=== PATIENT | male | born 1955 | race Caucasian/White ===

== ENCOUNTER → 2022-01-24 10:49 | Day surgery (SDC) | payer MEDICARE, SELFPAY ==
[2022-01-24 11:06] VITALS: BP 138/56; PULSE 76; RESP 18; TEMP 36.9; O2SAT 98
[2022-01-24] MEDS: vedolizumab 300 MG in sodium chloride 0.9% 250 ML 500 MG IV (11:21)
== END ==
PROVIDERS: PCP Internal Medicine; Visit Provider Internal Medicine
DX: K51.90 Ulcerative colitis, unspecified, without complications (principal)
CPT/HCPCS: 96365; J3380; J7050

== ENCOUNTER → 2022-03-21 10:52 | Day surgery (SDC) | payer MEDICARE, SELFPAY ==
[2022-03-21 10:53] VITALS: BP 161/69; PULSE 61; RESP 18; TEMP 36.7; O2SAT 97
[2022-03-21] MEDS: vedolizumab 300 MG in sodium chloride 0.9% 250 ML 500 MG IV (11:10)
== END ==
PROVIDERS: PCP Internal Medicine; Visit Provider Internal Medicine
DX: K51.90 Ulcerative colitis, unspecified, without complications (principal)
CPT/HCPCS: 96365; J3380; J7050

== ENCOUNTER → 2022-05-16 08:35 | Day surgery (SDC) | payer MEDICARE, SELFPAY ==
[2022-05-16 08:30] VITALS: BP 155/77; PULSE 51; RESP 18; TEMP 36.6; O2SAT 98
[2022-05-16] MEDS: vedolizumab 300 MG in sodium chloride 0.9% 250 ML 500 MG IV (08:37)
== END ==
PROVIDERS: PCP Internal Medicine; Visit Provider Internal Medicine
DX: K51.90 Ulcerative colitis, unspecified, without complications (principal)
CPT/HCPCS: 96365; J3380; J7050

== ENCOUNTER → 2022-07-11 08:04 | Day surgery (SDC) | payer MEDICARE, SELFPAY ==
[2022-07-11] MEDS: vedolizumab 300 MG in sodium chloride 0.9% 250 ML 500 MG IV (08:53)
[2022-07-11 09:11] VITALS: BP 170/78; PULSE 61; RESP 18; TEMP 37; O2SAT 96
== END ==
PROVIDERS: PCP Internal Medicine; Visit Provider Internal Medicine
DX: K51.90 Ulcerative colitis, unspecified, without complications (principal)
CPT/HCPCS: 96365; J3380; J7050

== ENCOUNTER → 2022-09-08 12:52 | Day surgery (SDC) | payer MEDICARE, SELFPAY ==
[2022-09-08] MEDS: vedolizumab 300 MG in sodium chloride 0.9% 250 ML 500 MG IV (13:16)
[2022-09-08 13:21] VITALS: BP 152/69; PULSE 64; RESP 18; TEMP 36.6; O2SAT 97
== END ==
PROVIDERS: PCP Internal Medicine; Visit Provider Internal Medicine
DX: K51.90 Ulcerative colitis, unspecified, without complications (principal)
CPT/HCPCS: 96365; J3380; J7050

== ENCOUNTER → 2022-11-07 11:32 | Day surgery (SDC) | payer MEDICARE, SELFPAY ==
[2022-11-07] MEDS: vedolizumab 300 MG in sodium chloride 0.9% 250 ML 500 MG IV (11:43)
[2022-11-07 11:49] VITALS: BP 149/66; PULSE 64; RESP 18; TEMP 36.9; O2SAT 96
== END ==
PROVIDERS: PCP Internal Medicine; Visit Provider Internal Medicine
DX: K51.90 Ulcerative colitis, unspecified, without complications (principal)
CPT/HCPCS: 96365; J3380; J7050

== ENCOUNTER → 2023-01-02 10:13 | Day surgery (SDC) | payer OTHER, SELFPAY ==
[2023-01-02 10:23] VITALS: BP 173/77; PULSE 60; RESP 18; TEMP 36.9; O2SAT 96
[2023-01-02] MEDS: vedolizumab 300 MG in sodium chloride 0.9% 250 ML 500 MG IV (10:29)
== END ==
PROVIDERS: PCP Internal Medicine; Visit Provider Internal Medicine
DX: K51.90 Ulcerative colitis, unspecified, without complications (principal); Z79.899 Other long term (current) drug therapy
CPT/HCPCS: 96365; J3380; J7050

== ENCOUNTER 2023-01-06 10:28 | Outpatient (CLI) | payer OTHER, SELFPAY ==
--- NOTE | 2023-01-06 10:42 | USCV_ITS ---
Frank Jhony Age: 67 Gender: M : 1955 Exam Date: 01/06/2023 11:15 Ordering Phys: Ankur Andrea DO Technologist: PIETER Exam Location: [facility] [place] Indication: LEFT BRUIT Risk Factors: Previous Vascular Surgery: Right Brachial BP: / Left Brachial BP: / Right Left Velocity (cm/s) Spectral Plaque Velocity (cm/s) Spectral Plaque Syst/Diast Broadening Syst/Diast Broadening 87.10/ 17.60 Prox CCA 124.30/ 19.30 105.80/18.70 Mid CCA 100.30/ 17.60 102.50/24.30 Distal CCA 99.20 / 24.30 91.10/ 16.20 Prox ICA 72.20 / 14.90 76.90/ 22.30 Mid ICA 93.10 / 25.60 63.70/ 14.00 Distal ICA 78.60 / 18.80 126.80 ECA 102.20 0.86 ICA/CCA 0.75 Antegrade Vertebral Antegrade 54.20/ 10.00 cm/s 77.80/ 12.80 cm/s Tri Subclavian Tri 134.0 169.9 0 0 FINDINGS Comparison: none available. Minimal bilateral, intimal thickening with no elevation of velocity. No significant elevation of systolic or diastolic velocities. Waveforms are normal. Antegrade vertebral arteries. CONCLUSIONS Bilateral ICA stenosis less than 50%. Minimal carotid atherosclerotic plaque. Dr. Janette Higginbotham DO (Electronically Signed) Final Date: 06 Jan 2023 11:51 S
== END 2023-01-06 10:29 | disposition home or self-care (01) ==
LOC: RAD 10:34
PROVIDERS: PCP Internal Medicine; Visit Provider Emergency Medicine Emergency Medical Services
DX: I65.23 Occlusion and stenosis of bilateral carotid arteries (principal); R09.89 Other specified symptoms and signs involving the circulatory and respiratory systems
CPT/HCPCS: 93880

== ENCOUNTER → 2023-03-02 09:41 | Day surgery (SDC) | payer OTHER, SELFPAY ==
[2023-03-02 09:50] VITALS: BP 170/69; PULSE 61; RESP 18; TEMP 36.8; O2SAT 97
[2023-03-02] MEDS: vedolizumab 300 MG in sodium chloride 0.9% 250 ML 500 MG IV (10:08)
== END ==
PROVIDERS: PCP Internal Medicine; Visit Provider Internal Medicine
DX: K51.90 Ulcerative colitis, unspecified, without complications (principal); Z79.899 Other long term (current) drug therapy
CPT/HCPCS: 96365; J3380; J7050

== ENCOUNTER → 2023-04-24 09:21 | Day surgery (SDC) | payer OTHER, SELFPAY ==
[2023-04-24 10:15] VITALS: BP 150/63; PULSE 48; RESP 18; TEMP 36.3; O2SAT 96
[2023-04-24] MEDS: vedolizumab 300 MG in sodium chloride 0.9% 250 ML 500 MG IV (10:24)
== END ==
PROVIDERS: PCP Internal Medicine; Visit Provider Internal Medicine
DX: K51.90 Ulcerative colitis, unspecified, without complications (principal)
CPT/HCPCS: 96360; J3380; J7050

== ENCOUNTER → 2023-06-19 07:46 | Day surgery (SDC) | payer OTHER, SELFPAY ==
[2023-06-19 08:18] VITALS: BP 177/81; PULSE 58; RESP 18; TEMP 36.7; O2SAT 97
[2023-06-19] MEDS: vedolizumab 300 MG in sodium chloride 0.9% 250 ML 500 MG IV (08:24)
== END ==
PROVIDERS: PCP Internal Medicine; Visit Provider Internal Medicine
DX: K51.90 Ulcerative colitis, unspecified, without complications (principal)
CPT/HCPCS: 96365; J3380; J7050

== ENCOUNTER 2023-11-09 07:12 | Oncology outpatient (recurring) (ONCR) | payer OTHER, SELFPAY ==
[2023-11-09 08:01] VITALS: BP 144/62; PULSE 60; RESP 16; TEMP 36.4; O2SAT 96
[2023-11-09] MEDS: sodium chloride 0.9% 250 ML 75 ML IV (08:46)
[2023-11-09] MEDS: vedolizumab 300 MG in sodium chloride 0.9% 250 ML 500 MG IV (09:42)
[2023-11-09 10:14] VITALS: BP 163/76; PULSE 77; O2SAT 96
== END 2023-12-08 23:59 | disposition home or self-care (01) ==
PROVIDERS: PCP Internal Medicine; Visit Provider Emergency Medicine Emergency Medical Services
DX: K51.90 Ulcerative colitis, unspecified, without complications (principal)
CPT/HCPCS: 96413; J3380; J7050

== ENCOUNTER → 2023-11-26 13:32 | Outpatient (BNVA) | payer OTHER, SELFPAY | PROVIDERS: PCP Internal Medicine; Visit Provider Nurse Practitioner Family | DX: L57.0 Actinic keratosis (principal); L56.8 Other specified acute skin changes due to ultraviolet radiation; L21.8 Other seborrheic dermatitis; S30.860A Insect bite (nonvenomous) of lower back and pelvis, initial encounter; X58.XXXA Exposure to other specified factors, initial encounter; L85.3 Xerosis cutis; D22.5 Melanocytic nevi of trunk; L57.8 Other skin changes due to chronic exposure to nonionizing radiation; L81.4 Other melanin hyperpigmentation | CPT/HCPCS: 17000; 99204 ==

== ENCOUNTER 2024-01-05 07:23 | Oncology outpatient (recurring) (ONCR) | payer OTHER, SELFPAY ==
[2024-01-05 08:12] VITALS: BP 165/61; PULSE 56; RESP 16; TEMP 36.3; O2SAT 96
[2024-01-05] MEDS: sodium chloride 0.9% 250 ML 75 ML IV (09:17)
[2024-01-05] MEDS: vedolizumab 300 MG in sodium chloride 0.9% 250 ML 500 MG IV (09:25)
[2024-01-05 10:18] VITALS: BP 169/61; PULSE 54; RESP 16; TEMP 36.6; O2SAT 99
== END 2024-01-08 23:59 | disposition home or self-care (01) ==
PROVIDERS: PCP Internal Medicine; Visit Provider Emergency Medicine Emergency Medical Services
DX: K51.90 Ulcerative colitis, unspecified, without complications (principal); Z79.620 Long term (current) use of immunosuppressive biologic; Z79.899 Other long term (current) drug therapy
CPT/HCPCS: 96365; J3380; J7050

== ENCOUNTER 2024-02-04 20:27 | Emergency (ER) | payer OTHER, MEDICARE, SELFPAY ==
[2024-02-04 20:29] VITALS: BP 170/55; PULSE 59; RESP 16; TEMP 36.5; O2SAT 97; BMI 25.0
--- NOTE | 2024-02-04 20:48 | XRR_ITS ---
PROCEDURE INFORMATION: Exam: XR Left Hand Exam date and time: 02/04/2024 8:54 PM Age: 68 years old Clinical indication: Injury or trauma; Fall; Laceration; Left; Ring finger; Injury details: PT fell and cut finger on a plastic chair. ; Additional info: Finger mangled TECHNIQUE: Imaging protocol: Radiologic exam of the left hand. Views: 3 or more views. COMPARISON: No relevant prior studies available. FINDINGS: Bones/joints: Bones are demineralized. Alignment is intact. Traumatic amputation of the distal tuft of the 4th distal phalanx. No other evidence of acute fracture. [id number] degenerative changes of the left hand in distribution most consistent with osteoarthritis. Soft tissues: Normal. Other findings: Skin defect overlying the 4th distal finger. XR/XR hand LT min 3V* [id number] IMPRESSION: Traumatic amputation of the distal tuft of the 4th distal phalanx.
[2024-02-04] MEDS: sulfamethoxazole-trimeth DS 160-800 mg Tablet 1 TAB PO (20:53)
[2024-02-04 20:54] VITALS: RESP 16; O2SAT 96
[2024-02-04] MEDS: morphine 4 mg/mL SDV 1 mL IM (20:54)
--- NOTE | 2024-02-04 20:58 | ED_ITS ---
HPI - Wound/Laceration General: Chief Complaint: Wound/Laceration Stated Complaint: laceration left hand Time Seen by Provider: 02/04/24 20:40 Source: patient Mode of arrival: ambulatory Limitations: no limitations History of Present Illness: Patient is a 68-year-old male presenting to the emergency department due to laceration to left ring finger prior to arrival. Patient states he was leaning back in his lawn chair when it broke and he caught his finger up and the armrest. He arrives with a mangled distal left ring finger that is bleeding at this time. Did arrive with direct pressure. States he did receive a tetanus shot 1 month ago. There is nailbed involvement. No obvious contamination at this time. He is noting severe pain but can still move his finger. No other symptoms reported. Not on any blood thinners. Onset (ago): minute(s) Extremity Location: Left: hand Place: outdoors Patient tetanus UTD: Yes Context: accidental Associated symptoms: Reports no associated symptoms; Denies chills, fever(s), nausea or vomiting Treatments prior to arrival: bandage Review of Systems General: Reports: 10 or more systems reviewed and unremarkable except in HPI and below Const: Denies: fever(s), chills or fatigue Eyes: Denies: change in vision ENMT: Denies: throat pain, ear or mastoid pain or nasal discharge Card: Denies: chest pain, palpitations, swelling of feet/ankles or lightheadedness Resp: Denies: dyspnea, productive cough or wheezing GI: Denies: abdominal pain, nausea, vomiting, diarrhea or constipation : Denies: flank pain, difficulty urinating, dysuria or urinary frequency Musc: Denies: neck pain, back pain or joint pain Skin/Breast: Reports: new lesions (Left ring finger laceration); Denies: rash Neuro: Denies: headache(s), numbness in extremities or weakness in extremities PFSH ED PFSH: Medical History Ulcerative colitis Social History Smoking and tobacco/nicotine status: never used tobacco/nicotine Alcohol intake: never Physical Exam Const: COMMON NORMALS: no acute distress, patient oriented x3 and no limitations GENERAL APPEARANCE: cooperative, comfortable and well developed ORIENTATION/CONSCIOUSNESS: Yes awake, Yes oriented to person, Yes oriented to place and Yes oriented to time HENMT: COMMON NORMALS: normocephalic, atraumatic and hearing grossly normal bilaterally HEAD & SCALP: normocephalic and atraumatic Eye: COMMON NORMALS: Equal, round and reactive pupils present, EOMs intact bilaterally and conjunctivae normal CONJUNCTIVA: Yes conjunctivae normal PUPIL: Yes Equal, round and reactive pupils present Neck/C-Spine: COMMON NORMALS: full ROM, supple and no JVD Resp: COMMON NORMALS: normal respiratory effort, No retractions, No use of accessory muscles and clear to auscultation bilaterally AUSCULTATION: clear to auscultation bilaterally Cardio: COMMON NORMALS: no JVD, regular rate, regular rhythm, No clicks present (Cardio), No murmurs present (Cardio) and No rub (Cardio) RATE: regular rate RHYTHM: regular rhythm Neuro: COMMON NORMALS: patient oriented x3, moves all extremities, no focal motor deficits and no sensory deficits noted SENSORIUM/ORIENTATION: Yes oriented to person, Yes oriented to place and Yes oriented to time Psych: COMMON NORMALS: mental status grossly normal and Normal thought process present THOUGHT PROCESS: Normal thought process present Skin: NARRATIVE SKIN EXAM: The tip of patient's left ring finger appears mangled, possibly a circumferential laceration involving the nailbed. There is active bleeding at this time. He can still move the finger, though with pain. No other injuries noted. Procedures Laceration Laceration 1: Site: hand Side (If applicable): left Size (cm): 5 Description: flap and irregular Depth: involves muscle layer Pre-repair: wound explored, irrigated extensively and wound margins revised Skin layer closed with: other (Prolene) Size (cm): 5-0 Number of sutures: 5 Technique: simple, interrupted Nerve Block Nerve Block 1: Local Anesthetic: lidocaine 2% Amount of anesthesia used (mL): 10 Nerve Blocks: digital Procedure Successful: Yes Patient Tolerated Procedure: well Complications: none Course Vital Signs: Vital signs: Vital Signs Temperature 97.7 F 02/04/24 20:29 Pulse Rate 60 02/04/24 22:46 Respiratory Rate 18 02/04/24 22:46 Blood Pressure 170/55 02/04/24 20:29 Pulse Oximetry 96 02/04/24 22:46 Oxygen Delivery Me thod Room Air 06/27/24 20:29 MDM - Wound/Laceration Medical Decision Making Patient presents with traumatic wound/laceration to his left ring finger. Vitals normal. His finger did appear mangled and difficult to initially evaluate the injury. X-ray of that finger revealed a traumatic amputation of the distal tuft. He is referred to orthopedics at this time. Digital block is performed successfully, in which his fingernail is successfully removed and finger is repaired. See procedure note. This procedure was tolerated well and he is dressed appropriately prior to discharge. He is given dose of antibiotics here and will take Bactrim twice daily here on out. He is also given pain medications here and will be sent prescription to his pharmacy. Reasons to return discussed including any signs of infection. Other strict return precautions given and he will follow-up as needed. Lab Data Radiology Impressions Hand X-Ray 02/04/24 20:48 IMPRESSION: Traumatic amputation of the distal tuft of the 4th distal phalanx. All radiology interpretation(s) finalized by discharge Discharge Plan Discharge Patient Disposition: Home Clinical Impression: Finger laceration Condition: Stable Prescriptions: New Bactrim 400-80 mg tablet 1 tab PO BID 10 Days Qty: 20 0RF hydrocodone-acetaminophen 7.5-325 mg tablet 1 tab PO Q8H PRN (Reason: pain) Qty: 20 0RF No Action metformin 500 mg tablet 500 mg PO DAILY pravastatin 40 mg tablet 40 mg PO DAILY mesalamine [Lialda] 1.2 gram tablet,delayed release (DR/EC) 2.4 g PO DAILY Entyvio 300 mg recon soln 300 mg IV .[id number] insulin aspart U-100 [Novolog FlexPen U-100 Insulin] 100 unit/mL (3 mL) Insulin Pen 12 unit SUBCUT TID Lantus U-100 Insulin 100 unit/mL Cartridge 40 unit SUBCUT QPM Discharge Orders: Discharge ED (Routine); Ordered 02/04/24 Ordered By: Alex Ceja Referrals: Bear Wu MD [Primary Care Provider] - Discharge Diet: Usual diet Discharge Activity: Limit activity as instructed Patient Instructions: Finger Laceration (ED) Activity Restrictions/Additional Instructions: Do not soak wound. Keep wound dry for the next 24-48 hours, afterwards you may dab clean with soap and water and then dab dry. Take antibiotics as prescribed. Pain medications as prescribed. Ice for any swelling. Follow-up with orthopedics as needed. Sutures out in 7-10 days. If you have any new or concerning signs or symptoms of infection, please return to the emergency department. Coding Level of Care Code ED Shower Screen Installer for Jennifer Vila
[2024-02-04] MEDS: lidocaine 2% INJ 20 mL INJECTION (22:00)
[2024-02-04 22:46] VITALS: PULSE 60; RESP 18; O2SAT 96
--- NOTE | 2024-02-04 22:49 | PC.NURSE ---
Pt sent home with Magnolia 7.5/325 per YOLI Ceja's orders.
== END 2024-02-04 22:45 | disposition home or self-care (01) ==
PROVIDERS: Emergency Provider Physician Assistant; PCP Internal Medicine
DX: S68.125A Partial traumatic metacarpophalangeal amputation of left ring finger, initial encounter (principal); Z79.4 Long term (current) use of insulin; W23.0XXA Caught, crushed, jammed, or pinched between moving objects, initial encounter
CPT/HCPCS: 12002; 64400; 73130; 96372; 99284; J2270

== ENCOUNTER → 2024-02-15 13:44 | Outpatient (BNVA) | payer OTHER, MEDICARE, SELFPAY | PROVIDERS: PCP Internal Medicine; Visit Provider Physician Assistant | DX: S62.635B Displaced fracture of distal phalanx of left ring finger, initial encounter for open fracture; W23.0XXA Caught, crushed, jammed, or pinched between moving objects, initial encounter | CPT/HCPCS: 73130; 99204 ==

== ENCOUNTER 2024-02-17 11:20 | Day surgery (SDC) | payer OTHER, SELFPAY ==
[2024-02-17 11:41] VITALS: BMI 25.0
[2024-02-17 11:45] LABS: Glucose Point of Care 118 mg/dL (70-110)
[2024-02-17] MEDS: ketorolac 30 mg/mL INJ IVP (11:45)
[2024-02-17] MEDS: acetaminophen 1,000 MG/100 ML PIGGYBACK 400 MG IV (11:47)
[2024-02-17] MEDS: scopolamine 1.5 Patch 1 PATCH TRANSDERMA (11:48)
[2024-02-17] MEDS: sodium chloride 0.9% 1,000 ML 30 ML IV (12:06)
--- NOTE | 2024-02-17 12:54 | W.PM.OPSUD ---
Surgery/Procedure H&P Update DATE OF PROCEDURE: February 17, 2024 DATE H&P PERFORMED: 02/15/24 H&P UPDATE INFORMATION: I have reviewed H&P completed within last 30 days, I have examined patient prior to procedure and No changes to prior documentation PREOP DIAGNOSIS: Left ring finger traumatic crush injury with nailbed injury and open distal PRIMARY INDICATION FOR PROCEDURE: Left ring finger traumatic crush injury with nailbed injury and open distal fracture PLANNED PROCEDURE: Operation Date: 02/17/24 13:20 Proposed Procedures p Debridement Upper Extremity And Irrigation - LEFT RING FINGER(Left) - DO tracie Mcdaniel Nail Bed Repair(Left) - DO tracie Mcdaniel REVISION Amputation Finger - POSSIBLE(Left) - Alok Mathias DO
--- NOTE | 2024-02-17 13:01 | ANES.PREANE2 ---
Pre-Anesthetic Assessment Height/Weight: Height 1.73 m Weight 74.843 kg O2 Del Method Room Air 02/17/24 11:35 Preop Diagnosis: Left ring finger traumatic crush injury with nailbed injury and open distal Operation Date: 02/17/24 13:20 Proposed Procedures p Debridement Upper Extremity And Irrigation - LEFT RING FINGER(Left) - Alok Mathias DO s Nail Bed Repair(Left) - Alok Mathias DO s REVISION Amputation Finger - POSSIBLE(Left) - Alok Mathias DO Familial anesthetic complications: None Was Beta Rafael taken within 24 hours: N/A Was Clonidine taken within 24 hours: N/A Last intake: Intake Last Liquid Date 02/17/24 Last Liquid Time 09:00 Last Solid Date 02/16/24 Last Solid Time 17:00 Social No alcohol and No tobacco Exam alert, oriented x 3, clear to auscultation bilaterally and regular rate & rhythm Airway Mallampati: Class I Dentition: full GI ulcerative colitis Metabolic Diabetes Mellitus Anesthetic Plan ASA status: 3 Anesthesia: MAC Risk of > 500 ml blood loss (7ml/kg in children): No Medications/Allergies Home Medications Medication Instructions Recorded Confirmed Last Taken Type mesalamine 1.2 gram tablet,delayed 2.4 g PO DAILY 01/09/22 02/16/24 02/16/24 History release (Lialda) vedolizumab 300 mg intravenous 300 mg IV .[id number] 01/09/22 02/16/24 01/05/24 History solution (Entyvio) metformin 500 mg tablet 500 mg PO DAILY 01/20/22 02/16/24 06/19/23 History pravastatin 40 mg tablet 40 mg PO DAILY 01/20/22 02/16/24 02/16/24 History insulin aspart U-100 100 unit/mL 12 unit SUBCUT TID 11/07/22 02/16/24 02/16/24 13:30 History (3 mL) subcutaneous pen (Novolog FlexPen U-100 Insulin aspart) insulin glargine 100 unit/mL 30 unit SUBCUT QPM 11/07/22 02/16/24 02/15/24 History subcutaneous cartridge hydrocodone 7.5 mg-acetaminophen 1 tab PO Q6H PRN pain 5 days #20 02/15/24 02/16/24 02/16/24 Rx 325 mg tablet tabs empagliflozin 25 mg tablet 25 mg PO DAILY 02/16/24 02/16/24 02/16/24 History Allergies Allergy/AdvReac Type Severity Reaction Status Date / Time No Known Allergies Allergy Verified 02/17/24 11:33 Current Medications Generic Name Dose Route Start Last Admin Trade Name Freq PRN Reason Stop Dose Admin Sodium Chloride 1,000 mls @ 30 mls/hr 02/17/24 12:15 02/17/24 12:06 Sodium Chloride 0.9% IV 02/18/24 12:14 30 mls/hr .Q24H FEDERICO Administration PFSH Anesthesia Medical History Ulcerative colitis Social History Smoking and tobacco/nicotine status: never used tobacco/nicotine Alcohol intake: never Data Anesthesia Cardiac Studies: No Data to Display
[2024-02-17] MEDS: ceFAZolin 2,000 MG in sodium chloride 0.9% (plus) 50 ML 100 MG IV (13:15)
[2024-02-17] MEDS: ROPivacaine 0.5% SDV 30 mL 25 MG INJECTION (14:03)
[2024-02-17] MEDS: BUPivacaine 0.5% INJ 10 mL 5 ML INJECTION (14:03)
[2024-02-17 14:06] VITALS: BP 125/60; PULSE 50; RESP 14; TEMP 36.2; O2SAT 96
[2024-02-17 14:11] VITALS: BP 111/60; PULSE 49; RESP 16; O2SAT 97
[2024-02-17 14:16] VITALS: BP 113/68; PULSE 49; RESP 16; O2SAT 96
--- NOTE | 2024-02-17 14:20 | P.BOP_ITS ---
Date of Procedure: [02/17/2024] Surgeon: Alok Mathias DO Mortgage Protection Sales(s): None Procedure(s) performed: Left ring finger irrigation and debridement (1.5 cm x 1 cm x 0.5 cm) Left ring finger nailbed repair Left ring finger revision amputation Findings of the procedure(s): [Patient found to have a traumatic open fracture distal phalanx with nailbed injury underwent revision amputation with removal of the distal tip of the phalanx fragment bone and the pulp was then reattached as well as nailbed repair performed. Underwent procedure as planned without issues or complications] Estimated blood loss: 1 mL Specimen(s) removed: None Post-operative diagnosis: Left ring finger traumatic fingertip injury with open distal phalanx fracture and nailbed injury
[2024-02-17 14:21] VITALS: BP 126/65; PULSE 48; RESP 16; TEMP 36.3; O2SAT 96
--- NOTE | 2024-02-17 14:22 | PM.OP ---
Operative Report Date of procedure: February 17, 2024 Pre-op diagnosis: Left ring finger traumatic fingertip injury with open distal phalanx fracture and nailbed injury Post-op diagnosis: Same Procedure done: Left ring finger irrigation and debridement (1.5 cm x 1 cm x 0.5 cm) Left ring finger nailbed repair Left ring finger revision amputation Specimens removed/disposition: Distal tip of distal phalanx of the left ring finger was excised for revision amputation, not sent for specimen Surgeon: Alok Mathias DO Anesthesia: MAC and Local Estimated blood loss: 1mL 25mins IV fluids: 800mL Complications: None Findings: See operative report narrative Condition: stable Disposition: same day Brief History: Patient is a pleasant 68-year-old gentleman who sustained a left ring finger crush injury to the fingertip with nailbed injury and open fracture distal phalanx. Patient originally seen evaluate in the emergency department underwent bedside irrigation debridement on antibiotics, tetanus up-to-date. Patient was then sent evaluated in the office and was seen evaluate by my PA. Found to have crush injury with nailbed injury as well as open distal phalanx fracture. At this point in time we talked about treatment options far as nonoperative and operative invention and through shared decision making patient like to proceed with surgical intervention of left ring finger irrigation and debridement and nailbed repair with possible revision amputation. Patient understands the ins and outs procedure risk benefits complication alternatives of surgery and through shared decision make elects proceed with surgical invention all questions answered at this time . Procedure: Patient was seen evaluate in the preoperative holding area. Consent was reviewed and signed with patient. Correct digit/extremity was then subsequently marked. Patient was then seen evaluated by anesthesia once cleared for surgery patient was taken back to the operative suite. Patient was kept on [facility] and armboard was applied to left upper extremity. Patient underwent anesthesia per the anesthesia apartment once appropriate anesthetized the left upper extremity was then prepped and draped in standard orthopedic fashion. Final timeout performed. Patient received appropriate preoperative antibiotics. Finger turnicot was placed over the left ring finger and started the insufflation of finger turnicot. This point in time I then subsequently evaluated left ring finger patient's crush injury and open laceration around the finger pulp as well as then had to make small incisions over the eponychial folds and remove the nail plate. This was removed atraumatically with a [place] underneath the nail. Nail was subsequently removed and had visualization with patient's distal fingertip was found to have open communication directly through the sterile matrix down to bone with the distal fragment very small in size with attached with the pulp. At this point time I inspected the germinal matrix this was not involved in the injury. This point in time I thoroughly irrigated out the entire wound bed. I debrided the bone and excised the distal fracture fragment of the finger pulp and then utilized a rasp to smooth out the proximal portion for this not to be too prominent distally. I can completely debrided any fracture hematoma all devitalized skin and subcutaneous tissue. This was debrided of 1.5 cm x 1 cm x 0.5 cm by sharp scalpel excision rongeur. Once this was completed I then thoroughly irrigated out the wound bed and at this point in time removal of the bone completed the revision amputation I was able to bring the volar pulp flap back upwards and just ever slightly shortened the fingertip with a revision amputation and reattach the pulp to the distal aspect adjoining the sterile matrix this was done with chromic suture. I then subsequently the nailbed laceration was repaired with chromic suture and Dermabond glue. The rest of the laceration finger was closed with nylon suture. Once I was satisfied with the nailbed repair and revision amputation as well as I&D I subsequently let down the tourniquet hemostasis was satisfactory. I then dressed this with a bulky soft dressing of Xeroform 4 x 4's Janina wrap Giovanni wrap and a fingertip protector. Patient was then awake from anesthesia taken PACU in stable condition. Disposition: Patient taken PACU in stable condition recovering well patient tolerated procedure without issue complication will complete postoperative antibiotics, given appropriate discharge instruction as well as pain medication will follow-up in the office in 2 weeks. Patient understands agrees to current plan. Questions answered.
[2024-02-17 14:31] VITALS: BP 128/74; PULSE 50; RESP 17; TEMP 36.1; O2SAT 95
--- NOTE | 2024-02-17 15:10 | ANE.PACU2 ---
Inpatient post-anesthesia follow up: Airway intact: Yes Vital signs: Temperature 97.0 F Pulse Rate 50 Respiratory Rate 17 Blood Pressure 128/74 Pulse Oximetry 95 Oxygen Delivery Me thod Room Air Oxygen Flow Rate 6 Fraction of Inspir ed Oxygen Hydration adequate: Yes Nausea and vomiting: No Pain level: 1 Mental status: Baseline
== END 2024-02-17 15:10 | disposition home or self-care (01) ==
PROVIDERS: Visit Provider Student in an Organized Health Care Education/Training Program
PROC: (CPT 11760; principal; 2024-02-17 13:20)
PROC: (CPT 11760; 2024-02-17 13:20)
PROC: (CPT 26951; 2024-02-17 13:20)
DX: S62.635B Displaced fracture of distal phalanx of left ring finger, initial encounter for open fracture (principal); W23.0XXA Caught, crushed, jammed, or pinched between moving objects, initial encounter; E11.9 Type 2 diabetes mellitus without complications; Z79.84 Long term (current) use of oral hypoglycemic drugs; Z79.4 Long term (current) use of insulin
CPT/HCPCS: 11760; 26236; 36416; 82962; J0131; J0690; J1885; J2704; J2795; J3010; J3490; J7030

== ENCOUNTER 2024-03-01 06:00 | Outpatient (CLI) | payer OTHER, SELFPAY | END 2024-03-01 23:59 | LOC: SOT 03-03 09:14 | PROVIDERS: PCP Family Medicine; Visit Provider Physician Assistant | DX: Z46.89 Encounter for fitting and adjustment of other specified devices (principal); S62.639B Displaced fracture of distal phalanx of unspecified finger, initial encounter for open fracture; X58.XXXD Exposure to other specified factors, subsequent encounter | CPT/HCPCS: 97760; L3935 ==

== ENCOUNTER → 2024-03-28 08:12 | Outpatient (BNVA) | payer OTHER, SELFPAY | PROVIDERS: PCP Family Medicine; Visit Provider Nurse Practitioner Family | DX: L57.0 Actinic keratosis (principal); L21.8 Other seborrheic dermatitis; L85.3 Xerosis cutis; D22.5 Melanocytic nevi of trunk; L57.8 Other skin changes due to chronic exposure to nonionizing radiation; L81.4 Other melanin hyperpigmentation; S40.862A Insect bite (nonvenomous) of left upper arm, initial encounter; X58.XXXA Exposure to other specified factors, initial encounter | CPT/HCPCS: 17000; 99214 ==

== ENCOUNTER → 2024-03-29 13:00 | Outpatient (BNVA) | payer OTHER, SELFPAY | PROVIDERS: PCP Family Medicine; Visit Provider Student in an Organized Health Care Education/Training Program | DX: S62.635B Displaced fracture of distal phalanx of left ring finger, initial encounter for open fracture; X58.XXXA Exposure to other specified factors, initial encounter | CPT/HCPCS: 99213 ==

== ENCOUNTER 2024-03-31 07:48 | Oncology outpatient (recurring) (ONCR) | payer OTHER, SELFPAY ==
[2024-03-31 08:02] VITALS: BP 157/70; PULSE 53; TEMP 36.7; O2SAT 97
[2024-03-31] MEDS: vedolizumab 300 MG in sodium chloride 0.9% 250 ML 500 MG IV (08:38)
[2024-03-31 09:26] VITALS: BP 174/86; PULSE 51; RESP 16; TEMP 36.9; O2SAT 97
== END 2024-04-09 23:55 | disposition home or self-care (01) ==
LOC: ONCMED 07:48
PROVIDERS: PCP Family Medicine; Visit Provider Internal Medicine
DX: K51.90 Ulcerative colitis, unspecified, without complications (principal); Z79.899 Other long term (current) drug therapy
CPT/HCPCS: 96413; J3380; J7050

== ENCOUNTER → 2024-05-03 09:05 | Outpatient (BNVA) | payer OTHER, SELFPAY | PROVIDERS: PCP Family Medicine; Visit Provider Physician Assistant | DX: M65.322 Trigger finger, left index finger (principal); M65.332 Trigger finger, left middle finger | CPT/HCPCS: 99213 ==

== ENCOUNTER 2024-05-19 09:56 | Day surgery (SDC) | payer OTHER, SELFPAY ==
[2024-05-19 10:17] VITALS: BP 122/73; PULSE 53; RESP 16; TEMP 36.2; O2SAT 98
[2024-05-19] MEDS: sodium chloride 0.9% 1,000 ML 30 ML IV (10:29)
[2024-05-19] MEDS: acetaminophen 1,000 MG/100 ML PIGGYBACK 400 MG IV (10:33)
[2024-05-19] MEDS: ketorolac 30 mg/mL INJ IVP (10:34)
[2024-05-19 10:38] LABS: Glucose Point of Care 91 mg/dL (70-110)
--- NOTE | 2024-05-19 10:46 | W.PM.OPSUD ---
Surgery/Procedure H&P Update DATE OF PROCEDURE: May 19, 2024 DATE H&P PERFORMED: 05/03/24 H&P UPDATE INFORMATION: I have reviewed H&P completed within last 30 days, I have examined patient prior to procedure and No changes to prior documentation PREOP DIAGNOSIS: Left middle finger trigger, left index finger trigger PRIMARY INDICATION FOR PROCEDURE: Left middle finger trigger, left index finger trigger PLANNED PROCEDURE: Operation Date: 05/19/24 11:40 Proposed Procedures p left middle finger trigger release and left index finger trigger release(Left) - Alok Mathias DO
--- NOTE | 2024-05-19 10:57 | ANES.PREANE2 ---
Pre-Anesthetic Assessment Height/Weight: Height 1.73 m Weight 74.843 kg Temp Pulse Resp BP Pulse Ox O2 Del Method 97.2 F L 53 L 16 122/73 98 Room Air 05/19/24 10:17 05/19/24 10:17 05/19/24 10:17 05/19/24 10:17 05/19/24 10:17 05/19/24 10:17 Preop Diagnosis: Left middle finger trigger, left index finger trigger Operation Date: 05/19/24 11:40 Proposed Procedures p left middle finger trigger release and left index finger trigger release(Left) - Alok Mey, DO Familial anesthetic complications: None Was Beta Rafael taken within 24 hours: N/A Was Clonidine taken within 24 hours: N/A Last intake: Intake Last Liquid Date 05/18/24 Last Liquid Time 17:00 Last Solid Date 05/18/24 Last Solid Time 16:00 Social No alcohol and No tobacco Exam alert, oriented x 3, clear to auscultation bilaterally and regular rate & rhythm Airway Mallampati: Class I Dentition: full GI Ulcerative colitis Metabolic Diabetes Mellitus Anesthetic Plan ASA status: 2 Anesthesia: MAC Risk of > 500 ml blood loss (7ml/kg in children): No Medications/Allergies Home Medications Medication Instructions Recorded Confirmed Last Taken Type mesalamine 1.2 gram tablet,delayed 2.4 g PO DAILY 01/09/22 05/18/24 05/11/24 History release (Lialda) vedolizumab 300 mg intravenous 300 mg IV .[id number] 01/09/22 05/18/24 03/30/24 History solution (Entyvio) metformin 500 mg tablet 500 mg PO DAILY 01/20/22 05/18/24 05/10/24 History pravastatin 40 mg tablet 40 mg PO DAILY 01/20/22 05/18/24 05/10/24 History insulin aspart U-100 100 unit/mL 12 unit SUBCUT TID 11/07/22 05/19/24 05/18/24 History (3 mL) subcutaneous pen (Novolog 6 FlexPen U-100 Insulin aspart) insulin glargine 100 unit/mL 30 unit SUBCUT QPM 11/07/22 05/03/24 02/15/24 History subcutaneous cartridge empagliflozin 25 mg tablet 25 mg PO DAILY 02/16/24 05/18/24 05/10/24 History tip protector, compressive finger #1 ea 03/01/24 05/03/24 Unknown Rx sleeve, local wound care tramadol 50 mg tablet 50 mg PO Q6H PRN pain 5 days #20 05/19/24 Unknown Rx tabs Allergies Allergy/AdvReac Type Severity Reaction Status Date / Time No Known Allergies Allergy Verified 05/03/24 09:57 Current Medications Generic Name Dose Route Start Last Admin Trade Name Freq PRN Reason Stop Dose Admin Sodium Chloride 1,000 mls @ 30 mls/hr 05/19/24 10:15 05/19/24 10:29 Sodium Chloride 0.9% IV 05/20/24 10:14 30 mls/hr .Q24H FEDERICO Administration PFSH Anesthesia Medical History Ulcerative colitis Social History Smoking and tobacco/nicotine status: never used tobacco/nicotine Alcohol intake: never Data Anesthesia Cardiac Studies: No Data to Display
[2024-05-19] MEDS: ceFAZolin 2,000 MG in sodium chloride 0.9% (plus) 50 ML 100 MG IV (11:39)
[2024-05-19] MEDS: ROPivacaine 0.5% SDV 30 mL 150 MG INJECTION (12:07)
[2024-05-19] MEDS: lidocaine 1% 10 ML INJ XX (12:07)
[2024-05-19 12:38] VITALS: BP 87/54; PULSE 41; RESP 16; TEMP 36.3; O2SAT 92
[2024-05-19 12:43] VITALS: BP 122/62; PULSE 44; RESP 16; O2SAT 93
[2024-05-19 12:48] VITALS: BP 121/66; BP 127/64; PULSE 43; PULSE 47; RESP 16; TEMP 36.3; O2SAT 93; O2SAT 94
--- NOTE | 2024-05-19 12:50 | W.PM.BPON ---
Date of Procedure: 05/19/2024 Surgeon: Alok Mathias DO Supervisor Calibration(s): None Procedure(s) performed: Left middle finger trigger release Left index finger trigger release Findings of the procedure(s): Patient was found to have severe trigger finger of the middle and index finger of the left hand. Underwent procedure as planned without issues or complications. We did have patient wake up gently to follow commands for MAC anesthesia to make a full fist which she was able to do no evidence of triggering noted by patient or visibly Estimated blood loss: 5 mL Specimen(s) removed: None Post-operative diagnosis: Left middle finger trigger, left index finger trigger
--- NOTE | 2024-05-19 12:51 | PM.OP ---
Operative Report Date of procedure: May 19, 2024 Surgeon: Alok Mathias DO Procedure: Preoperative diagnosis: Left middle finger trigger Left index finger trigger Post-op diagnosis: Same Procedure done: Left?middle?finger?trigger?release Left index finger trigger release Surgeon: Alok Mathias DO Estimated blood loss: 5cc Tourniquet time 17mins Complications: None Condition: stable Disposition: same day Brief History: Patient's been seen and worked up in the outpatient setting and findings consistent with preoperative diagnosis of Left?middle and index?finger?trigger.? He is failed conservative treatment.? Continues to have mechanical locking and catching.? Severe pain as well.? We talked about treatment options nonoperative versus operative intervention.? ?Patient understands the risk benefits complication alternatives of surgical nonsurgical treatment options.? Understanding his risks with surgery he elects proceed with surgical intervention.? Consent obtained in PACU today.? Here today to proceed with surgical intervention.? All questions answered. Procedure: Patient was seen and evaluated in the preoperative holding area.? Consent was reviewed and signed with patient.? Seen evaluated by Anesthesia Department.? Once cleared for surgery was brought back to the operative suite.? Placed in supine position on the OR table all bony prominences well-padded patient properly secured to the bed.? Patient's Left arm was then placed to the armboard.? A nonsterile tourniquet applied to the Left upper arm.? Patient's Left upper extremity was then prepped and draped in standard orthopedic fashion.? Final timeout performed.? Patient received appropriate preoperative antibiotics. Esmarch tourniquet was used exsanguinate the Left upper extremity tourniquet insufflated to 250 mmHg. Under sterile aseptic technique local digital block was performed to the Left?middle?finger.? Once appropriately anesthetized a standard oblique incision was made centering over the A1 tammy following patient's flexor crease.? Sharp scalpel incision was made only through skin and then switched to Littler dissection scissors and spread longitudinally directly over the flexor tendon sheath.? I then mobilized both radially and ulnarly and Kasdan retractors were used and placed by my assistant professor of history to protect neurovascular bundle.? Next I visualized the A1 tammy and this was incised with a scalpel.? I then switched to dissection scissors and released the A1 tammy both proximally as well as distally to its entirety.? Significant tendon sheath fluid was noted consistent with inflammation.? Mild fraying of the flexor tendons noted but no tear.? At this point I utilized a rag nail and pulled the tendons FDS and FDP out of the incision and no?triggering was noted.? Finger was taken through range of motion no mechanical triggering appreciated. Thorough irrigation was performed and then proceeded with the index finger trigger release. I then had anesthesia wake up the patient and patient was able to actively flex and extend with no?triggering.? Next, Under sterile aseptic technique local digital block was performed to the index?finger.? Once appropriately anesthetized a standard longitudinal/oblique incision was made centering over the A1 tammy following patient's flexor crease.? Sharp scalpel incision was made only through skin and then switched to Littler dissection scissors and spread longitudinally directly over the flexor tendon sheath.? I then mobilized both radially and ulnarly and Kasdan retractors were used and placed by my assistant professor of history to protect neurovascular bundle.? Next I visualized the A1 tammy and this was incised with a scalpel.? I then switched to dissection scissors and released the A1 tammy both proximally as well as distally to its entirety.? Significant tendon sheath fluid was noted consistent with inflammation.? Mild fraying of the flexor tendons noted but no tear.? At this point I utilized a rag nail and pulled the tendons FDS and FDP out of the incision and no?triggering was noted.? I then had anesthesia wake up the patient and patient was able to actively flex and extend with no?triggering to both of the middle and index fingers.? At This point thorough irrigation was performed.? Tourniquet deflated hemostasis satisfactory with bipolar.? I then subsequently closed the incision with interrupted nylon suture.? Xeroform 4 x 4's, Kerlix and an Giovanni wrap was applied for a bulky soft dressing.? Patient was then subsequently awakened from anesthesia and taken to PACU in stable condition tolerated procedure without issues. Disposition: Patient taken back in stable condition recovering well.? Patient will receive appropriate discharge instruction as well as pain medication postoperatively.? Patient to follow-up with me in the office in 2 weeks for repeat evaluation and incision check.? Patient understands that any questions or concerns and contact the office.? All questions answered.
[2024-05-19 13:05] VITALS: BP 141/76; PULSE 48; RESP 16; O2SAT 95
[2024-05-19 13:32] VITALS: BP 154/82; PULSE 45; RESP 18; O2SAT 97
--- NOTE | 2024-05-19 13:45 | ANE.PACU2 ---
Inpatient post-anesthesia follow up: Airway intact: Yes Vital signs: Temperature 97.4 F Pulse Rate 45 Respiratory Rate 18 Blood Pressure 154/82 Pulse Oximetry 97 Oxygen Delivery Me thod Room Air Oxygen Flow Rate Fraction of Inspir ed Oxygen Hydration adequate: Yes Nausea and vomiting: No Pain level: 1 Mental status: Baseline
== END 2024-05-19 13:45 | disposition home or self-care (01) ==
PROVIDERS: PCP Family Medicine; Visit Provider Student in an Organized Health Care Education/Training Program
PROC: (CPT 26055; principal; 2024-05-19 11:30)
DX: M65.332 Trigger finger, left middle finger (principal); M65.322 Trigger finger, left index finger; E11.9 Type 2 diabetes mellitus without complications; Z79.84 Long term (current) use of oral hypoglycemic drugs; Z79.4 Long term (current) use of insulin
CPT/HCPCS: 26055 ×2; 36416; 82962; J0131; J0690; J1885; J2704; J2795; J3010; J7030

== ENCOUNTER → 2024-05-31 09:50 | Outpatient (BNVA) | payer OTHER, SELFPAY | PROVIDERS: PCP Family Medicine; Visit Provider Physician Assistant | DX: R03.0 Elevated blood-pressure reading, without diagnosis of hypertension (principal); Z98.890 Other specified postprocedural states | CPT/HCPCS: 99024 ==

== ENCOUNTER 2024-06-02 09:00 | Oncology outpatient (recurring) (ONCR) | payer OTHER, SELFPAY ==
--- NOTE | 2024-05-26 09:11 | PC.NURSE ---
Patient came in for [facility] with recent surgery for release of trigger finger 7 days ago despite not having antibiotics ,[facility] called and notified with extension [phone] stating no not usually to infuse with this event just happening Patient was rescheduled next week with his approval and understanding.[email or web address]
[2024-06-02 08:21] VITALS: BP 154/50; PULSE 59; RESP 16; TEMP 36.6; O2SAT 97
[2024-06-02] MEDS: vedolizumab 300 MG in sodium chloride 0.9% 250 ML 500 MG IV (09:15)
[2024-06-02 09:46] VITALS: BP 168/65; PULSE 62; TEMP 36.7; O2SAT 97
== END 2024-06-09 23:59 | disposition home or self-care (01) ==
PROVIDERS: PCP Family Medicine; Visit Provider Family Medicine
DX: Z53.9 Procedure and treatment not carried out, unspecified reason (principal); Z79.620 Long term (current) use of immunosuppressive biologic; K51.90 Ulcerative colitis, unspecified, without complications
CPT/HCPCS: 96413; J3380; J7050

== ENCOUNTER 2024-06-08 11:25 | Outpatient (RCR) | payer OTHER, SELFPAY | END 2024-06-09 23:59 | disposition home or self-care (01) | LOC: SOT 11:25 | PROVIDERS: Visit Provider Physician Assistant | DX: M65.30 Trigger finger, unspecified finger (principal) | CPT/HCPCS: 97110; 97165; 97530 ==

== ENCOUNTER 2024-06-10 06:00 | Outpatient (RCR) | payer OTHER, SELFPAY | END 2024-07-09 23:59 | disposition home or self-care (01) | LOC: SOT 06:00 | PROVIDERS: PCP Family Medicine; Visit Provider Physician Assistant | DX: M65.30 Trigger finger, unspecified finger (principal) | CPT/HCPCS: 97022; 97110; 97140 ==

== ENCOUNTER → 2024-06-28 14:00 | Outpatient (BNVA) | payer OTHER, SELFPAY | PROVIDERS: PCP Family Medicine; Visit Provider Nurse Practitioner Family | DX: L21.8 Other seborrheic dermatitis (principal); D22.5 Melanocytic nevi of trunk; L57.8 Other skin changes due to chronic exposure to nonionizing radiation; L81.4 Other melanin hyperpigmentation | CPT/HCPCS: 17000; 99214 ==

== ENCOUNTER → 2024-07-12 10:44 | Outpatient (BNVA) | payer OTHER, SELFPAY | PROVIDERS: PCP Family Medicine; Visit Provider Physician Assistant | DX: Z98.890 Other specified postprocedural states (principal) | CPT/HCPCS: 99024 ==

== ENCOUNTER 2024-07-27 12:21 | Oncology outpatient (recurring) (ONCR) | payer OTHER, SELFPAY ==
[2024-07-27 12:48] VITALS: BP 143/76; PULSE 61; RESP 16; TEMP 36.7; O2SAT 96
[2024-07-27] MEDS: vedolizumab 300 MG in sodium chloride 0.9% 250 ML 500 MG IV (13:27)
== END 2024-08-09 23:59 | disposition home or self-care (01) ==
PROVIDERS: PCP Family Medicine; Visit Provider Family Medicine
DX: K51.90 Ulcerative colitis, unspecified, without complications; Z79.620 Long term (current) use of immunosuppressive biologic
CPT/HCPCS: 96413; J3380; J7050

== ENCOUNTER 2024-09-21 07:11 | Oncology outpatient (recurring) (ONCR) | payer OTHER, SELFPAY ==
[2024-09-21 08:03] VITALS: BP 169/78; PULSE 51; RESP 16; TEMP 36.6; O2SAT 96
[2024-09-21] MEDS: vedolizumab 300 MG in sodium chloride 0.9% 250 ML 500 MG IV (08:46)
[2024-09-21 09:35] VITALS: BP 180/80; PULSE 57; RESP 16; TEMP 36.8; O2SAT 98
== END 2024-10-07 23:59 | disposition home or self-care (01) ==
PROVIDERS: PCP Family Medicine; Visit Provider Family Medicine
DX: K51.90 Ulcerative colitis, unspecified, without complications (principal); Z79.620 Long term (current) use of immunosuppressive biologic
CPT/HCPCS: 96413; J3380; J7050

== ENCOUNTER → 2024-10-27 13:19 | Outpatient (BNVA) | payer OTHER, SELFPAY | PROVIDERS: PCP Family Medicine; Visit Provider Nurse Practitioner Family | DX: S20.369A Insect bite (nonvenomous) of unspecified front wall of thorax, initial encounter (principal); X58.XXXA Exposure to other specified factors, initial encounter; L57.8 Other skin changes due to chronic exposure to nonionizing radiation; L81.4 Other melanin hyperpigmentation; S00.80XA Unspecified superficial injury of other part of head, initial encounter | CPT/HCPCS: 17000; 99213 ==

== ENCOUNTER 2024-11-16 07:41 | Oncology outpatient (recurring) (ONCR) | payer OTHER, SELFPAY ==
[2024-11-16] MEDS: vedolizumab 300 MG in sodium chloride 0.9% 250 ML 500 MG IV (08:27)
[2024-11-16 09:20] VITALS: BP 152/88; PULSE 78; RESP 18; TEMP 36.4; O2SAT 98
== END 2024-12-07 23:59 | disposition home or self-care (01) ==
PROVIDERS: PCP Family Medicine; Visit Provider Family Medicine
DX: K51.90 Ulcerative colitis, unspecified, without complications (principal); Z79.620 Long term (current) use of immunosuppressive biologic
CPT/HCPCS: 96413; J3380; J7050

== ENCOUNTER 2025-01-11 07:28 | Oncology outpatient (recurring) (ONCR) | payer OTHER, SELFPAY ==
[2025-01-11] MEDS: vedolizumab 300 MG in sodium chloride 0.9% 250 ML 500 MG IV (08:35)
[2025-01-11 09:26] VITALS: BP 159/74; PULSE 51; RESP 16; TEMP 36.3; O2SAT 97
== END 2025-02-06 23:59 | disposition home or self-care (01) ==
PROVIDERS: PCP Family Medicine; Visit Provider Family Medicine
DX: K51.90 Ulcerative colitis, unspecified, without complications (principal); Z79.620 Long term (current) use of immunosuppressive biologic
CPT/HCPCS: 96413; J3380; J7050

== ENCOUNTER 2025-03-08 07:19 | Oncology outpatient (recurring) (ONCR) | payer OTHER, SELFPAY ==
[2025-03-08 09:34] VITALS: BP 158/76; PULSE 51; RESP 16; TEMP 36.5; O2SAT 97
== END 2025-03-09 23:59 | disposition home or self-care (01) ==
PROVIDERS: PCP Family Medicine; Visit Provider Family Medicine
DX: K51.90 Ulcerative colitis, unspecified, without complications (principal); Z79.620 Long term (current) use of immunosuppressive biologic; Z79.899 Other long term (current) drug therapy
CPT/HCPCS: 96413; J3380; J7050

== ENCOUNTER 2025-05-03 07:31 | Oncology outpatient (recurring) (ONCR) | payer OTHER, SELFPAY ==
[2025-05-03 08:27] VITALS: BP 137/69; PULSE 53; RESP 16; TEMP 36.9; O2SAT 96
[2025-05-03 09:10] VITALS: BP 149/60; PULSE 48; RESP 17; TEMP 36.8; O2SAT 96
== END 2025-05-09 23:59 | disposition home or self-care (01) ==
PROVIDERS: PCP Family Medicine; Visit Provider Family Medicine
DX: K51.90 Ulcerative colitis, unspecified, without complications (principal); Z79.620 Long term (current) use of immunosuppressive biologic; Z79.899 Other long term (current) drug therapy
CPT/HCPCS: 96413; J3380; J7050

== ENCOUNTER → 2025-05-08 14:42 | Outpatient (BNVA) | payer OTHER, SELFPAY | PROVIDERS: PCP Family Medicine; Visit Provider Nurse Practitioner Family | DX: L80 Vitiligo (principal); L57.8 Other skin changes due to chronic exposure to nonionizing radiation; L81.4 Other melanin hyperpigmentation; L57.0 Actinic keratosis | CPT/HCPCS: 17000; 99214 ==

== ENCOUNTER 2025-05-09 08:03 | Outpatient (CLI) | payer OTHER, SELFPAY ==
--- NOTE | 2025-05-09 08:13 | XRR_ITS ---
PROCEDURE INFORMATION: Exam: XR Right Ankle Exam date and time: 05/09/2025 8:24 AM Age: 69 years old Clinical indication: Right; HX of fracture x few years. Chronic swelling on RT ankle w/ lateral pain off & on. ; Additional info: Arthritis TECHNIQUE: Imaging protocol: Radiologic exam of the right ankle. Views: 1 or 2 views. COMPARISON: No relevant prior studies available. FINDINGS: Bones/joints: Deformity from healed fractures of the medial and lateral malleolus. No evidence of acute osseous, joint, or soft tissue abnormality. Mild/moderate osteoarthritis of the ankle. Soft tissues: See Bones/joints finding. XR/XR ankle RT 2V [id number] IMPRESSION: No acute traumatic injury.
== END 2025-05-09 08:04 | disposition home or self-care (01) ==
PROVIDERS: Visit Provider Chiropractor
DX: M13.80 Other specified arthritis, unspecified site (principal)
CPT/HCPCS: 73600

== ENCOUNTER 2025-06-28 07:34 | Oncology outpatient (recurring) (ONCR) | payer OTHER, SELFPAY ==
[2025-06-28 08:19] VITALS: BP 188/73; PULSE 61; RESP 17; TEMP 36.8; O2SAT 96
[2025-06-28 09:05] VITALS: BP 171/72; PULSE 57; RESP 17; TEMP 36.9; O2SAT 97
== END 2025-07-09 23:59 | disposition home or self-care (01) ==
PROVIDERS: PCP Family Medicine; Visit Provider Family Medicine
DX: Z53.9 Procedure and treatment not carried out, unspecified reason; K51.90 Ulcerative colitis, unspecified, without complications; Z79.620 Long term (current) use of immunosuppressive biologic; Z79.899 Other long term (current) drug therapy
CPT/HCPCS: 96413; J3380; J7050